=== PATIENT | female | born 1930 | race American Indian/Alaskan Native ===

== ENCOUNTER 2019-02-15 13:36 | Emergency (ER) | payer MEDICARE ==
--- NOTE | 2019-02-15 14:13 | Emergency Department Report ---
ED CPR HPI - General Chief Complaint: Cardiac Arrest/CPR Stated Complaint: CARDIAC ARREST Time Seen by Provider: 02/15/19 14:05 Source: family, EMS Mode of arrival: Stretcher Limitations: Other - History of Present Illness Initial Comments: 88-year-old female whose family summoned the EMS for shortness of breath and then unresponsiveness. Medics arrived and found the patient pulseless and apneic. CPR was not in progress but according to the medic was done for a period of time prior to their arrival per the family. The patient was resuscitated and transported. Medics state that they intubated but lost the tube and route. They replaced it with a Rob air. They state that they gave usual ACLS medications. They stated that there was a brief return of spontaneous circulation and a pulse rate of about 70 which did not last very long. Patient was given amiodarone. Field resuscitation was unsuccessful and further buddhism of spontaneous circulation. Medics stated that they had been attempting resuscitation for greater than 15 minutes upon their arrival. The patient arrives in asystole. MD Complaint: found unresponsive -: minute(s) Place: home Bystander CPR Performed: Yes Number of Shocks Delivered: 2 Initial Findings in the Field: unresponsive, systole (asystole) ROSC in the Field: Yes (very briefly) Associated Injuries: No Associated Symptoms: shortness of breath Treatments Prior to Arrival: intubation, other airway device ED Review of Systems ROS: Stated complaint: CARDIAC ARREST Other details as noted in HPI Comment: Unobtainable due to pts medical conditions ED Past Medical Hx - Past Medical History Previous Medical History?: Yes Hx Congestive Heart Failure: Yes Additional medical history: SVT, EF 15% - Social History Substance Use Type: None ED Physical Exam - General Limitations: Other General appearance: other (past and unresponsive) - Head Head exam: Present: atraumatic - ENT ENT exam: Present: other (Rob air down oropharynx) - Neck Neck exam: Present: normal inspection - Respiratory Respiratory exam: Present: decreased breath sounds (poor chest rise and significant air leak) - Cardiovascular Cardiovascular Exam: Present: other (no heart sounds) - GI/Abdominal GI/Abdominal exam: Present: soft - Extremities Exam Extremities exam: Present: normal inspection - Neurological Exam Neurological exam: Present: other (GCS is 3) ED Course - Reevaluation(s) Reevaluation #1: Patient was intubated with a Mac 4 blade 7.5 [place] endotracheal tube. There was significant aspirated material in the endotracheal tube, good color change. There was a lot of emesis in the oropharynx is well. There was good chest rise and breath sounds. However the patient remained in asystole. She is given additional epinephrine with no positive response. Patient was finally pronoun cathy in asystole. Family was counseled. 02/15/19 14:13 Critical care attestation.: If time is entered above; I have spent that time in minutes in the direct care of this critically ill patient, excluding procedure time. ED Disposition Clinical Impression: Cardiac arrest Disposition: DC-20 Is pt being admited?: No Does the pt Need Aspirin: No Condition: Stable Referrals: YURI THOMAS MD [Other] - 3-5 Days Time of Disposition: 14:14
[2019-02-15] MEDS ORDERED: ADRENALIN ONE (14:47)
== END 2019-02-15 15:00 ==
LOC: ED 13:36
DX: I46.9 Cardiac arrest, cause unspecified (principal); I50.9 Heart failure, unspecified
CPT/HCPCS: 31500; 82962; 92950; 99285; J0171